=== PATIENT | male | born 1955 | race African-American/Black ===

== ENCOUNTER 2018-11-26 16:12 | Emergency (ER) | payer OTHER ==
[~2018-11-26] VITALS: Ht 180.3 cm; Wt 76.2 kg
[2018-11-26 16:16] VITALS: BP 106/70
--- NOTE | 2018-11-26 16:26 | NUR ---
ED Nurse Note: Pt from home came in due to swelling of his right side cheek since this morning. Pt relates possible spider bite. Noted large swelling of right side cheek. Denies respiratory distress. Pt is AAO x4, ambulatory and following commands.
[2018-11-26] MEDS ORDERED: Clindamycin 600mg 50 ML IVPB ONE (17:00)
[2018-11-26] MEDS ORDERED: Isovue-300 100ml vial INJ PRN (17:00)
--- NOTE | 2018-11-26 17:15 | NUR ---
ED Nurse Note: Collected blood and sent.
[2018-11-26 17:28] LABS: BASOPHILS % (AUTO) 1.2 % (0.0-2.0); EOSINOPHILS % (AUTO) 0.5 % (0.0-3.0); HEMOGLOBIN 14.3 G/DL (14.2-18.0); LYMPHOCYTES % (AUTO) 23.8 % (20.0-45.0); MEAN CORPUSCULAR VOLUME 97 FL (80-99); MONOCYTES % (AUTO) 8.3 % (1.0-10.0); NEUTROPHILS % (AUTO) 66.2 % (45.0-75.0); PLATELET COUNT 203 K/UL (150-450); RED BLOOD COUNT 4.33 M/UL (4.70-6.10); RED CELL DISTRIBUTION WIDTH 11.3 % (11.6-14.8); WHITE BLOOD COUNT 9.9 K/UL (4.8-10.8)
[2018-11-26 17:40] LABS: ANION GAP 8 mmol/L (5-15); BLOOD UREA NITROGEN 11 mg/dL (7-18); CALCIUM 9.1 MG/DL (8.5-10.1); CARBON DIOXIDE 30 MMOL/L (21-32); CHLORIDE 103 MMOL/L (98-107); CREATININE 1.1 MG/DL (0.55-1.30); POTASSIUM 3.3 MMOL/L (3.5-5.1); SODIUM 141 MMOL/L (136-145)
[2018-11-26 17:44] LABS: ALANINE AMINOTRANSFERASE 17 U/L (12-78); ALBUMIN/GLOBULIN RATIO 0.7 (1.0-2.7); ALKALINE PHOSPHATASE 70 U/L (46-116); ASPARTATE AMINO TRANSFERASE 15 U/L (15-37); BILIRUBIN,TOTAL 0.6 MG/DL (0.2-1.0)
--- NOTE | 2018-11-26 18:42 | NUR ---
ED Nurse Note: Pt is aware of admission. Pt resting on bed and VSS. Will continue to assess.
[2018-11-26] MEDS ORDERED: Ketorolac 30mg Inj IV ONE (18:45)
[2018-11-26 19:00] VITALS: BP 100/65
--- NOTE | 2018-11-26 19:13 | NUR ---
ED Nurse Note: received report from RN Viktoriya and assumed care, pt vss, resp even and unlabored on RA, noted swelling on left lower mandibular area, airway intact, will cont monitor. pt advised to notify staff if needed assist. iv on left ac intact.
--- NOTE | 2018-11-26 19:13 | NUR ---
HAND-OFF: Report given to marjorie BRIONES.
[2018-11-26 20:00] VITALS: BP 99/67
--- NOTE | 2018-11-26 20:13 | NUR ---
ED Nurse Note: PT PROVIDED W/ EXTRA BLANKET AND WATER , VERFIEID W/ ER PROVIDER.
--- NOTE | 2018-11-26 20:35 | Emergency Room Report ---
History of Present Illness General Chief Complaint: Skin Rash/Abscess Present Illness HPI 63 YO male presents to the ED c/o 04/10 in severity pain, swelling, tenderness, and warmth to the right lower jaw/cheek x 2 days. Denies dental pain or recent dental work. Denies fevers or chills. pt. reports rather rapid progression. he reports numbness to the swollen area as well. Denies swelling of the tongue. reports that swelling has slightly began to involve the right side of the lower lip. Pt. denies hx of similar symptoms in the past. Denies hx of immune compromise. no aggravating or relieving factors. Pt.not on MANUELA- inhibitors. Allergies: Coded Allergies: DALBAVANCIN (Verified Allergy, Unknown, 11/26/18) Patient History Past Medical History: see triage record Past Surgical History: none Pertinent Family History: none Reviewed Nursing Documentation: PMH: Agreed; PSxH: Agreed Nursing Documentation-PMH History Of Psychiatric Problem: Yes Review of Systems All Other Systems: negative except mentioned in HPI Physical Exam Vital Signs Date Time Temp Pulse Resp B/P (MAP) Pulse Ox O2 Delivery O2 Flow Rate FiO2 11/26/18 16:16 98.2 95 20 106/70 98 Room Air Sp02 EP Interpretation: reviewed, normal General Appearance: no apparent distress, alert, GCS 15, non-toxic Head: normocephalic, other - swelling to the right jaw line. Eyes: bilateral eye normal inspection, bilateral eye PERRL ENT: hearing grossly normal, no angioedema, normal voice, other - There is moderate swelling to the right cheek and along the right jaw line. small fluid filled cyst was palpated on bimanual exam along with moderate induration of the ST. no obvious gum or tooth ttp. No tonsillar swelling, No stridor Neck: full range of motion, no meningismus Respiratory: lungs clear, normal breath sounds, no wheezing, speaking full sentences Cardiovascular #1: regular rate, rhythm Musculoskeletal: back normal, gait/station normal, normal range of motion, non- tender Neurologic: alert, oriented x3, responsive, motor strength/tone normal, sensory intact, speech normal, grossly normal Psychiatric: judgement/insight normal Skin: normal color, no rash, warm/dry, well hydrated Medical Decision Making PA Attestation Dr. Mascorro is my supervising Physician whom patient management has been discussed with. Diagnostic Impression: Primary Impression: Facial cellulitis ER Course 63 YO male presents to the ED c/o 04/10 in severity pain, swelling, tenderness, and warmth to the right lower jaw/cheek x 2 days. Denies dental pain or recent dental work. Denies fevers or chills. pt. reports rather rapid progression. he reports numbness to the swollen area as well. Denies swelling of the tongue. reports that swelling has slightly began to involve the right side of the lower lip. Pt. denies hx of similar symptoms in the past. Denies hx of immune compromise. no aggravating or relieving factors. Pt.not on MANUELA- inhibitors. Ddx considered but are not limited to cellulitis,Dental infection, facial abscess, angioedema, sialoadenitis just to name a few. Vital signs: are WNL, pt. is afebrile H&PE are most consistent with Right sided facial cellulitis ORDERS: -CBC: unremarkable -BMP: unremarkable -CT maxillofacial with contrast: no abscess. extensive soft tissue swelling along the right side of the mandible. potentially secondary to odontogenic infection with third right maxillary apical cyst osseous thinning or absence at the tip. ED INTERVENTIONS: -IV Clindamycin -IV Toradol -IV Morphine -20 Meq Kcl PO DISPOSITION: at this time pt. will be admitted to Dr. Hernandez for Facial Cellulitis. Dr. Hernandez agreed to admit the pt. and to continue pt. care management. Labs Test 11/26/18 17:09 White Blood Count 9.9 K/UL (4.8-10.8) Red Blood Count 4.33 M/UL (4.70-6.10) Hemoglobin 14.3 G/DL (14.2-18.0) Hematocrit 42.0 % (42.0-52.0) Mean Corpuscular Volume 97 FL (80-99) Mean Corpuscular Hemoglobin 33.0 PG (27.0-31.0) Mean Corpuscular Hemoglobin Concent 34.0 G/DL (32.0-36.0) Red Cell Distribution Width 11.3 % (11.6-14.8) Platelet Count 203 K/UL (150-450) Mean Platelet Volume 5.5 FL (6.5-10.1) Neutrophils (%) (Auto) 66.2 % (45.0-75.0) Lymphocytes (%) (Auto) 23.8 % (20.0-45.0) Monocytes (%) (Auto) 8.3 % (1.0-10.0) Eosinophils (%) (Auto) 0.5 % (0.0-3.0) Basophils (%) (Auto) 1.2 % (0.0-2.0) Sodium Level 141 MMOL/L (136-145) Potassium Level 3.3 MMOL/L (3.5-5.1) Chloride Level 103 MMOL/L (98-107) Carbon Dioxide Level 30 MMOL/L (21-32) Anion Gap 8 mmol/L (5-15) Blood Urea Nitrogen 11 mg/dL (7-18) Creatinine 1.1 MG/DL (0.55-1.30) Estimat Glomerular Filtration Rate > 60 mL/min (>60) Glucose Level 93 MG/DL (74-106) Calcium Level 9.1 MG/DL (8.5-10.1) Total Bilirubin 0.6 MG/DL (0.2-1.0) Aspartate Amino Transf (AST/SGOT) 15 U/L (15-37) Alanine Aminotransferase (ALT/SGPT) 17 U/L (12-78) Alkaline Phosphatase 70 U/L (46-116) Total Protein 7.1 G/DL (6.4-8.2) Albumin 3.0 G/DL (3.4-5.0) Globulin 4.1 g/dL Albumin/Globulin Ratio 0.7 (1.0-2.7) CT/MRI/US Diagnostic Results CT/MRI/US Diagnostic Results : Imaging Test Ordered: CT Maxillofacial With Contrast Impression "No abscess. extensive soft tissue swelling along the right side of the mandible. potentially secondary to odontogenic infection with third right maxillary apical cyst osseous thinning or absence at the tip" ---Per official radiology report- Please see report for specific details. Last Vital Signs Date Time Temp Pulse Resp B/P (MAP) Pulse Ox O2 Delivery O2 Flow Rate FiO2 11/26/18 19:46 98.2 11/26/18 16:16 95 20 106/70 (82) 98 Room Air Status: unchanged Disposition: HOME, SELF-CARE Condition: Stable Referrals: [facility],REFERRING (PCP) Etta Rowe November 26, 2018 20:35
--- NOTE | 2018-11-26 21:44 | NUR ---
ED Nurse Note: CALLED [facility], PER DANDRE RN RECEIVING, RN CANNOT TAKE REPORT AT THIS TIME.
--- NOTE | 2018-11-26 22:06 | NUR ---
ED Nurse Note: REPORT GIVEN TO RN DANDRE FROM [facility] FOR TRANPORTATION, VSS, RESP EVEN AND UNLABORED ON RA, AIRWAY INTACT, LEFT W/ ALL BELONGINGS. IV INTACT AND PATENT.
[2018-11-26 22:08] VITALS: BP 102/68
--- NOTE | 2018-11-27 08:20 | Diagnostic Imaging Report ---
Indication: Facial pain and swelling Technique: IV administration nonionic contrast. Spiral acquisitions obtained through the Multiplanar reconstructions were generated. Total dose length product 654.96 mGycm. CTDIvol(s) 28.19 mGy. Radiation dose was minimized using automated exposure control Comparison: none Findings: There is soft tissue swelling in the right buccal region predominantly involving the subcutaneous fat. No rim-enhancing fluid collection or other findings to suggest abscess demonstrated. There is evidence of multiple prior dental extractions and caries. There is lucency about the apical root of the left second maxillary incisor. There is some lucency also in the expected region of the right second maxillary premolar, although that tooth itself is absent. There is some mucosal disease within the left sphenoid sinus. There is a small mucous retention cyst or polyp within the left maxillary sinus. The orbits and optic globes are unremarkable. The upper aerodigestive tract is unremarkable. The bilateral parapharyngeal spaces are symmetric, clear. Impression: Right buccal region soft tissue swelling, likely cellulitis, without evidence of abscess. Dental disease as described Minimal sinus disease as described This agrees with the preliminary interpretation provided overnight by [facility] teleradiology service. The CT scanner at [facility] is accredited by the [employer] and the scans are performed using protocols designed to limit radiation exposure to as low as reasonably achievable to attain images of sufficient resolution adequate for diagnostic evaluation.
== END 2018-11-26 20:09 | disposition home or self-care (01) ==
LOC: EMR 16:50
DX: L03.211 Cellulitis of face (principal); Z88.8 Allergy status to other drugs, medicaments and biological substances
CPT/HCPCS: 36415; 70487; 80053; 85025; 96365; 96375; 99284; J1885; Q9967; J8499; S0077